=== PATIENT | male | born 1990 | race Caucasian/White ===

== ENCOUNTER 2016-09-02 09:45 | Emergency (ER) | payer OTHER ==
[~2016-09-02 09:45] MED LIST: ABILIFY; CLONIDINE PO; DEPAKOTE PO; FAMOTIDINE PO; PROZAC PO; ROBITUSSIN-DM120 ML; TRAZODONE PO; TRILEPTAL PO; WALGREENS PHARMACY; ZOFRAN PO; [UNRECOGNIZED DRUG - OTHER]
== END 2016-09-02 09:47 | disposition home or self-care (01) ==
LOC: CFTX 09:45
DX: H10.31 Unspecified acute conjunctivitis, right eye (principal); F31.9 Bipolar disorder, unspecified; F90.9 Attention-deficit hyperactivity disorder, unspecified type; F17.210 Nicotine dependence, cigarettes, uncomplicated; Z88.0 Allergy status to penicillin
CPT/HCPCS: 99283

== ENCOUNTER 2016-12-04 19:41 | Emergency (ER) | payer OTHER | END 2016-12-04 20:50 | disposition home or self-care (01) | LOC: CED 19:41 → CFTX 19:41 | DX: L03.011 Cellulitis of right finger (principal); F90.9 Attention-deficit hyperactivity disorder, unspecified type; F17.210 Nicotine dependence, cigarettes, uncomplicated; Z88.0 Allergy status to penicillin; Z88.1 Allergy status to other antibiotic agents | CPT/HCPCS: 99282 ==